=== PATIENT | female | born 1940 | race Two or more races ===

== ENCOUNTER 2018-05-30 19:46 | Emergency (ER) | payer OTHER ==
[2018-05-30 20:50] LABS: BASOPHIL % 0.3 % (0-2); PLATELET COUNT 247 x10^3mcL (130-400)
[2018-05-30 20:52] LABS: RED CELL DISTRIBUTION WIDTH 15.6 % (11.5-14.5)
[2018-05-30 20:56] LABS: CALCIUM 8.9 mg/dL (8.5-10.1); CARBON DIOXIDE 29.7 mmol/L (21-32); CHLORIDE SERUM 105 mmol/L (98-107); CREATININE SERUM 0.9 mg/dL (0.6-1.0); GLUCOSE SERUM 110 mg/dL (74-106); POTASSIUM SERUM 3.7 mmol/L (3.5-5.1); SODIUM SERUM 140 mmol/L (136-145)
[2018-05-30 21:11] LABS: FREE T4 1.03 ng/dL (0.76-1.46)
[2018-05-30 23:50] VITALS: BP 138/67
== END 2018-05-30 23:50 | disposition home or self-care (01) ==
LOC: ED 19:46
PROVIDERS: Emergency Medicine
DX: I10 Essential (primary) hypertension (principal); R51 Headache; Z90.49 Acquired absence of other specified parts of digestive tract
CPT/HCPCS: 84439; J0360; J2270; J2405; J7030; Q0092